=== PATIENT | male | born 1985 | race Caucasian/White ===

== ENCOUNTER 2023-06-01 15:05 | Emergency (ER) | payer OTHER ==
[~2023-06-01] VITALS: Ht 180.3 cm; Wt 93.0 kg
[2023-06-01 15:11] VITALS: BP_SYST 118; PULSE 98; RESP 18; TEMP 98; O2SAT 98
[2023-06-01] MEDS ORDERED: VIS25 PO (15:54)
[2023-06-01] MEDS ORDERED: DIPHTH,PERTUSS(ACELL),TET VAC 0.5 ML VIAL (Tdap) I.M. ONE (16:00)
[2023-06-01 16:12] VITALS: BP_SYST 118; PULSE 98; RESP 18; TEMP 98; O2SAT 98
[2023-06-01] MEDS ORDERED: 0.45% NACL 1,000 ML IV SCH (16:30)
[2023-06-01] MEDS ORDERED: cefTRIAXone 1 GM VIAL IM ONE (17:00)
== END 2023-06-01 16:13 | disposition home or self-care (01) ==
LOC: SED 15:05
DX: R68.84 Jaw pain (principal); F41.9 Anxiety disorder, unspecified; F43.9 Reaction to severe stress, unspecified; F12.90 Cannabis use, unspecified, uncomplicated; Z79.899 Other long term (current) drug therapy
CPT/HCPCS: 90715; 99283